=== PATIENT | female | born 1980 | race Caucasian/White ===

== ENCOUNTER 2017-07-30 03:36 | Inpatient (IN) | payer OTHER ==
[2017-07-30] VITALS (161 sets, daily range): BP systolic 72–147; BP diastolic 24–111; PULSE 48–189; RESP 18–20; TEMP 97.5–101.3; O2SAT 98–100
[~2017-07-30] VITALS: Ht 162.6 cm; Wt 80.7 kg
[~2017-07-30 03:36] MED LIST: DHA200CA OR; IBUP-238 PO; PREN0.01 PO; SENN1TAB11 PO
[2017-07-30] MEDS ORDERED: LACTATED RINGER'S 1000 ML INJ 1,000 ML IV PRN (04:17)
--- NOTE | 2017-07-30 04:17 | PD ---
HPI Chief Complaint Rupture of membranes at 1 AM Date Seen: Jul 30, 2017 Time Seen: 04:13 Travel History International Travel<30 Days: No Contact w/Intl Traveler<30Days: No Known Affected Area: No History of Present Illness HPI 36-year-old at 40 weeks gestation comes in complaining of rupture membranes with clear fluid at 1:00 this morning. Patient started having contractions of a year continuing to be mild about the same time, she is group B strep negative and has an uneventful thus far uncomplicated . Weeks Gestation: 40 Para: 1 : 3 History Past Medical History Medical History: Denies Significant Hx Obstetric History Obstetric History Spontaneous vaginal delivery Past Surgical History Surgical History: No Previous Surgery Family History Family History: Negative Social History Alcohol Use: No Tobacco Use: No Substance Abuse: No Allergies-Medications (Allergen,Severity, Reaction): Coded Allergies: Sulfa (Sulfonamide Antibiotics) (Unverified Allergy, Severe, 03/04/17) Home Meds Reported Medications Docusate Sod/Senna (Senna Plus 8.6-50 mg) 1 Tab Tab, 2 TAB PO HS 11/23/10 Ibuprofen (Motrin) 800 Mg Tab, 800 MG PO QID, #30 11/23/10 Docosahexaenoic Acid (Dha Complete) 200 Mg Cap, 200 MG OR 11/20/10 Multivit/Min/Fol Ac/Iron/Pren ( Vit ( Plus)) Tab, 1 TAB PO DAILY, #30 11/20/10 Review of Systems Except as stated in HPI: all other systems reviewed are Neg Physical Exam Narrative GENERAL: Well-nourished, well-developed patient. SKIN: Warm and dry. HEAD: Normocephalic and atraumatic. EYES: No scleral icterus. No injection or drainage. ENT: No nasal drainage noted. Mucous membranes pink. Airway patent. NECK: Supple, trachea midline. No JVD. CARDIOVASCULAR: Regular rate and rhythm without murmurs, gallops, or rubs. RESPIRATORY: Breath sounds equal bilaterally. No accessory muscle use. ABDOMEN/GI: Abdomen soft, non-tender, bowel sounds present, no rebound, no guarding Gravid to 38 [-] weeks size Fundal Height: [-] GENITOURINARY: External Genitalia: intact and normal in appearance BUS glands: [-Normal] Cervix: [-] Posterior Dilatation: [-] 1 Effacement: [-] Long Station: [-] High Presentation: [-] Vertex Membranes: [intact or ruptured] ruptured with clear fluid Uterine Contractions: [-] Every 5-8 minutes FHT's: Category: [-] 1 Baseline: [-] 140 Reactive: [-] Moderate Variability: [-] Moderate Decels: [-] Absent EXTREMITIES: No cyanosis or edema. BACK: Nontender without obvious deformity. No CVA tenderness. NEUROLOGICAL: Awake and alert. Motor and sensory grossly within normal limits. Five out of 5 muscle strength in all muscle groups. Normal speech. Data Data Vital Signs Reviewed: Yes Orders Orders Ob (2e) Additional Admit Info (07/30/17 04:10) Group B Strep: Negative [facility] Medical Record Reviewed: Yes Plan 36-year-old at 40 weeks gestation with premature rupture membranes, group B strep negative. Admit to labor delivery, patient desires epidural at some point during her labor Diagnosis Diagnosis: Primary Impression: 40 weeks gestation of Additional Impressions: Rupture of membranes with clear amniotic fluid Premature rupture of membranes Saundra Lemus MD Jul 30, 2017 04:17
[2017-07-30] MEDS: LACTATED RINGER'S 1000 ML INJ 1,000 ML IV SCH ×3 (04:25→15:49)
[2017-07-30] MEDS ORDERED: MINERAL OIL 10 ML VIAL TOPICAL PRN (04:30)
[2017-07-30] MEDS ORDERED: OXYTOCIN 30 UNITS-500ML PREMIX 500 ML IV SCH ×2 (04:30→18:00)
[2017-07-30] MEDS ORDERED: SODIUM CHLORID 0.9% 500 ML INJ 500 ML IV PRN (04:30)
[2017-07-30] MEDS ORDERED: CITRIC ACID-SODIUM CITRATE LIQ 30 ML UDC PO SCH (04:30)
[2017-07-30] MEDS ORDERED: LIDOCAINE HCL 1% 50 ML VIAL I-DERMAL PRN (04:30)
[2017-07-30] MEDS ORDERED: ONDANSETRON HCL 4 MG/2 ML VIAL IV PUSH PRN (04:30)
[2017-07-30] MEDS ORDERED: LIDOCAINE HCL 1% 50 ML VIAL INFIL PRN (04:30)
[2017-07-30] MEDS ORDERED: SODIUM CHLOR 0.9% 1000 ML INJ 1,000 ML IV PRN (04:37)
[2017-07-30 04:44] LABS: AUTOMATED NEUTROPHIL # 6.1 TH/MM3 (1.8-7.7); BASOPHIL % 0.3 % (0.0-2.0); EOSINOPHIL # 0.1 TH/MM3 (0-0.4); EOSINOPHIL % 0.9 % (0.0-4.0); HEMATOCRIT 32.9 % (35.0-46.0); HEMOGLOBIN 11.6 GM/DL (11.6-15.3); LYMPH % 26.4 % (9.0-44.0); LYMPHOCYTE # 2.5 TH/MM3 (1.0-4.8); MEAN CELL VOLUME 88.5 FL (80.0-100.0); MEAN CORPUSCULAR HEMOGLOBIN 31.1 PG (27.0-34.0); MEAN CORPUSCULAR HGB CONC 35.2 % (32.0-36.0); MEAN PLATELET VOLUME 9.3 FL (7.0-11.0); MONO % 7.9 % (0.0-8.0); MONOCYTE # 0.7 TH/MM3 (0-0.9); NEUT % 64.5 % (16.0-70.0); PLATELET COUNT 197 TH/MM3 (150-450); RED BLOOD COUNT 3.72 MIL/MM3 (4.00-5.30); RED CELL DISTRIBUTION WIDTH 15.4 % (11.6-17.2); WHITE BLOOD COUNT 9.5 TH/MM3 (4.0-11.0)
[2017-07-30 04:48] LABS: BILIRUBIN, URINE NEG (NEG); BLOOD, URINE NEG (NEG); GLUCOSE,URINE NEG (NEG); KETONE, URINE 10 mg/dL (NEG); MUCUS URINE FEW /lpf (OCC); NITRITE,URINE NEG (NEG); PH, URINE 6.5 (5.0-8.5); SQUAMOUS EPITHELIAL CELL URINE <1 /hpf (0-5); URINE COLOR YELLOW (YELLW/STRAW); URINE LEUKOCYTE ESTERASE NEG (NEG)
--- NOTE | 2017-07-30 08:38 | HHI.PR ---
[employer] Note Note to bedside to evaluate pt admit for PROM, augmenting with pitocin //2 arlette q4 min, pitocin at 6 milliunits/min feeling contractions pain 08/30; not yet requesting epidural Cat I tracing currently continue augmentation anticipate Arianna Lord MD Jul 30, 2017 08:38
[2017-07-30] MEDS ORDERED: fentaNYL 2MCG-BUPIV 0.125% INJ 100 ML ONE (09:05)
[2017-07-30] MEDS ORDERED: ePHEDrine/NS 25 MG/5 ML SYRINGE ONE (09:05)
[2017-07-30] MEDS ORDERED: DO NOT ADMINISTER ANTICOAGULANTS PRN (10:30)
[2017-07-30] MEDS ORDERED: NO SYSTEM NARCOTICS PRN (10:30)
[2017-07-30] MEDS ORDERED: fentaNYL 2MCG-BUPIV 0.125% 100 ML EPIDURAL SCH (10:30)
[2017-07-30] MEDS ORDERED: ePHEDrine/NS 25 MG/5 ML SYRINGE IV PUSH PRN (10:30)
[2017-07-30] MEDS ORDERED: MEASLES, MUMPS, RUBELLA VACCINE 0.5 ML VIAL SQ ONE (16:00)
[2017-07-30] MEDS ORDERED: DIPHTH/TETANUS/ACEL PERTUSSIS (BOOSTER) 0.5 ML VIAL/PFS IM ONE (16:00)
[2017-07-30] MEDS ORDERED: LIDOCAINE HCL 1% 20 ML VIAL ONE (17:48)
[2017-07-30] MEDS ORDERED: ACETAMINOPHEN 325 MG TAB PO PRN (18:00)
[2017-07-30] MEDS ORDERED: ZOLPIDEM TARTRATE 5 MG TAB PO PRN (18:00)
[2017-07-30] MEDS ORDERED: BENZOCAINE 20% TOPICAL SPRAY 60 ML CAN TOPICAL PRN (18:00)
[2017-07-30] MEDS ORDERED: ONDANSETRON ODT 4 MG TAB PO PRN (18:00)
[2017-07-30] MEDS ORDERED: ALUMINUM/MAGNESIUM/SIMETH 30 ML CUP PO PRN (18:00)
[2017-07-30] MEDS ORDERED: DOCUSATE SODIUM 50 MG/SENNA 8.6 MG TAB PO PRN (18:00)
[2017-07-30] MEDS ORDERED: SODIUM CHLORIDE 0.9% FLUSH 10 ML FLUSH IV FLUSH PRN (18:00)
[2017-07-30] MEDS ORDERED: oxyCODONE/ACETAMINOPHEN 5 MG/325 MG TAB PO PRN ×2 (18:00)
[2017-07-30] MEDS ORDERED: WITCH HAZEL 50%/GLYCERIN 12.5% 40 PAD JAR TOPICAL PRN (18:00)
--- NOTE | 2017-07-30 18:00 | PD.OB.DELI ---
Weeks gestation: 40 Medical induction of labor?: No Artificial rupture of membrane: No Anesthesia: Epidural Episiotomy: None Vaginal Delivery: Normal Presentation: Occiput anterior Nuchal Cord: x1 (tight, clamped & cut at perineum) Delayed cord clamping (45 sec): No Infant: Single Delivery date: Jul 30, 2017 Delivery time: 17:39 One Minute : 8 Five Minute : 8 Placenta: Spontaneous delivery, Intact, 3 vessel cord Laceration: Vaginal laceration (sidewall abrasion in vein; single figure of 8 suture using 3-0 chromic achieved hemostasis) Repair: Chromic running (single figure of 8) Estimated blood loss: 200 mL Arianna Gamez MD Jul 30, 2017 18:00
[2017-07-30] MEDS ORDERED: SODIUM CHLORIDE 0.9% FLUSH 10 ML FLUSH IV FLUSH SCH (21:00)
[2017-07-30] MEDS ORDERED: MISOPROSTOL 200 MCG TAB ONE (23:42)
[2017-07-30] MEDS: OXYTOCIN 30 UNITS-500ML PREMIX 500 ML IV ONE ×2 (23:48→23:50)
--- NOTE | 2017-07-31 00:14 | HHI.PR ---
Subjective Remarks OB HG Called to see patient due to increased bleeding on behalf of Dr. Gamez. The patient delivered at 1739. She reports she's been having moderate to heavy bleeding since. She arrived the unit approximate 8PM and has saturated 2 full pads in about 3-1/2 hours. She is voiding adequately and recently emptied her bladder. The patient has stable vital signs and her fundus is at U +1. Examination revealed bleeding from the vagina. The patient was consented for manual evacuation of uterine clots. The patient was given 100 g of fentanyl IV. Approximately 250 cc of clots and blood was evacuated from the lower uterine segment. The uterus was U -2 following evacuation. Bleeding appeared to be scant and no additional bleeding was noted from the vagina at this time after evacuation. The patient received Methergine 0.2 mg, Cytotec thousand micrograms SC, and 30 units of oxytocin given over 30 minutes. In addition, we'll continue an additional 500 cc bag with 30 units oxytocin over 5 hours. The patient tolerated the evacuation of clots well. Please call for additional bleeding or other concerns. Objective Vital Signs Date Time Temp Pulse Resp B/P (MAP) Pulse Ox O2 Delivery O2 Flow Rate FiO2 07/30/17 21:52 98.0 94 18 120/70 (87) 07/30/17 19:50 18 07/30/17 19:45 85 137/64 (88) 07/30/17 19:30 81 122/79 (93) 07/30/17 19:15 18 07/30/17 19:15 94 138/78 (98) 07/30/17 19:00 80 144/67 (92) 07/30/17 18:56 99.0 07/30/17 18:50 18 07/30/17 18:46 89 135/67 (89) 07/30/17 18:35 18 07/30/17 18:31 94 143/61 (88) 07/30/17 18:20 19 07/30/17 18:15 102 147/93 (111) 07/30/17 18:07 101.3 07/30/17 18:05 19 07/30/17 18:01 178 103/24 (50) 07/30/17 17:59 106 140/86 (104) 07/30/17 17:50 20 07/30/17 17:35 134 07/30/17 17:31 115 129/111 (117) 07/30/17 17:30 103 07/30/17 17:02 99.3 07/30/17 17:00 109 138/91 (107) 07/30/17 17:00 110 07/30/17 16:30 127 07/30/17 16:30 136 128/72 (90) 07/30/17 16:10 114 07/30/17 16:05 109 07/30/17 16:00 108 116/83 (94) 07/30/17 16:00 109 07/30/17 15:35 112 07/30/17 15:31 107 103/80 (88) 07/30/17 15:30 112 07/30/17 15:01 125 120/95 (103) 07/30/17 15:00 98 07/30/17 14:55 95 07/30/17 14:50 48 07/30/17 14:45 102 07/30/17 14:40 94 07/30/17 14:35 98 07/30/17 14:31 83 108/55 (72) 07/30/17 14:30 119 07/30/17 14:01 104 114/84 (94) 07/30/17 14:00 103 07/30/17 13:35 93 07/30/17 13:30 96 133/73 (93) 07/30/17 13:30 90 07/30/17 13:11 97.5 07/30/17 13:10 90 07/30/17 13:05 86 07/30/17 13:00 96 07/30/17 13:00 97 129/83 (98) 07/30/17 12:40 85 98 07/30/17 12:40 87 07/30/17 12:35 78 07/30/17 12:35 82 100 07/30/17 12:30 81 07/30/17 12:30 81 07/30/17 12:30 81 113/56 (75) 100 07/30/17 12:00 75 07/30/17 12:00 75 106/54 (71) 07/30/17 12:00 77 07/30/17 11:55 71 07/30/17 11:55 71 07/30/17 11:50 82 07/30/17 11:50 80 1/10/18 11:45 73 07/30/17 11:45 73 07/30/17 11:40 73 07/30/17 11:40 75 07/30/17 11:39 75 108/61 (77) 07/30/17 11:36 74 107/56 (73) 07/30/17 11:35 74 07/30/17 11:35 74 07/30/17 11:33 76 108/58 (75) 07/30/17 11:30 70 07/30/17 11:30 78 07/30/17 11:30 76 111/53 (72) 07/30/17 11:27 72 105/56 (72) 07/30/17 11:25 78 07/30/17 11:25 75 07/30/17 11:24 80 109/56 (73) 07/30/17 11:21 76 110/53 (72) 07/30/17 11:20 80 07/30/17 11:20 78 07/30/17 11:18 74 107/51 (69) 07/30/17 11:15 77 107/58 (74) 07/30/17 11:15 73 07/30/17 11:15 74 07/30/17 11:12 85 114/68 (83) 07/30/17 11:10 76 07/30/17 11:10 75 07/30/17 11:09 74 107/50 (69) 07/30/17 11:06 71 07/30/17 11:06 105/47 (66) 07/30/17 11:05 82 07/30/17 11:05 80 07/30/17 11:03 100/53 (69) 07/30/17 11:03 79 07/30/17 11:01 84 07/30/17 11:01 107/65 (79) 07/30/17 11:00 83 07/30/17 11:00 85 07/30/17 10:57 81 114/68 (83) 07/30/17 10:55 72 07/30/17 10:55 71 07/30/17 10:54 74 121/63 (82) 07/30/17 10:51 79 123/53 (76) 07/30/17 10:50 79 07/30/17 10:50 81 07/30/17 10:48 76 118/68 (85) 07/30/17 10:45 76 07/30/17 10:45 82 118/63 (81) 07/30/17 10:45 80 07/30/17 10:42 82 115/70 (85) 07/30/17 10:40 90 07/30/17 10:40 84 07/30/17 10:39 91 112/64 (80) 07/30/17 10:36 70 114/60 (78) 07/30/17 10:35 69 07/30/17 10:35 71 07/30/17 10:33 68 116/63 (80) 07/30/17 10:30 76 107/59 (75) 07/30/17 10:30 67 07/30/17 10:30 68 07/30/17 10:25 64 07/30/17 10:25 62 72/45 (54) 07/30/17 10:25 75 07/30/17 10:20 85 107/54 (71) 07/30/17 10:20 88 07/30/17 10:20 89 07/30/17 10:16 78 115/71 (86) 07/30/17 10:15 87 07/30/17 10:15 88 07/30/17 10:10 88 128/75 (92) 07/30/17 10:10 85 07/30/17 10:10 91 07/30/17 10:06 189 97/59 (72) 07/30/17 10:05 88 07/30/17 10:05 86 07/30/17 10:01 80 138/65 (89) 07/30/17 10:00 82 07/30/17 10:00 82 07/30/17 10:00 98.3 07/30/17 09:55 90 07/30/17 09:55 90 137/78 (97) 07/30/17 09:55 87 07/30/17 09:51 83 138/71 (93) 07/30/17 09:50 79 07/30/17 09:50 80 07/30/17 09:46 75 133/71 (91) 07/30/17 09:45 80 07/30/17 09:45 78 07/30/17 09:40 84 07/30/17 09:40 76 07/30/17 09:40 83 135/72 (93) 07/30/17 09:35 77 07/30/17 09:35 76 07/30/17 09:35 77 122/64 (83) 07/30/17 09:33 80 145/44 (77) 07/30/17 09:31 84 126/78 (94) 07/30/17 09:30 98.3 07/30/17 09:30 88 07/30/17 09:30 83 07/30/17 09:20 69 07/30/17 09:20 69 07/30/17 09:15 72 07/30/17 09:15 72 07/30/17 09:10 71 07/30/17 09:05 71 07/30/17 09:00 68 118/78 (91) 07/30/17 09:00 74 07/30/17 08:30 71 136/80 (98) 07/30/17 08:30 67 07/30/17 08:10 69 07/30/17 08:05 74 07/30/17 08:00 68 123/77 (92) 07/30/17 08:00 66 07/30/17 07:50 68 07/30/17 07:45 71 07/30/17 07:44 97.6 69 130/85 (100) 07/30/17 07:40 72 07/30/17 07:35 69 07/30/17 07:30 67 07/30/17 07:25 74 07/30/17 07:20 66 07/30/17 07:10 77 07/30/17 07:05 71 07/30/17 07:00 78 07/30/17 06:55 78 07/30/17 06:50 75 07/30/17 06:45 79 07/30/17 06:40 75 07/30/17 06:35 75 07/30/17 06:30 76 07/30/17 06:25 76 07/30/17 06:20 75 07/30/17 06:15 77 07/30/17 06:10 77 07/30/17 06:05 81 07/30/17 06:00 74 07/30/17 05:55 77 07/30/17 05:50 78 07/30/17 05:45 80 07/30/17 05:40 75 07/30/17 05:35 87 07/30/17 05:30 77 07/30/17 05:25 75 07/30/17 05:20 79 07/30/17 05:15 84 07/30/17 05:10 80 07/30/17 05:05 98 07/30/17 05:00 77 07/30/17 04:55 75 07/30/17 04:50 74 07/30/17 04:45 75 07/30/17 04:40 79 07/30/17 04:35 88 07/30/17 04:30 82 07/30/17 04:25 77 07/30/17 04:20 82 07/30/17 03:55 86 Result Diagram: 07/30/17 0431 Suzy Montalvo MD Jul 31, 2017 00:13
[2017-07-31 00:28] VITALS: BP 126/69; PULSE 85; RESP 18
[2017-07-31] MEDS ORDERED: METHYLERGONOVINE MALEATE 0.2 MG/ML VIAL IM ONE (01:00)
[2017-07-31] MEDS ORDERED: MISOPROSTOL 200 MCG TAB RECTAL ONE (01:00)
[2017-07-31] MEDS ORDERED: OXYTOCIN 30 UNITS-500ML PREMIX 500 ML IV ONE (01:00)
[2017-07-31 08:00] VITALS: BP 86/66; PULSE 85; RESP 16; TEMP 99.3
[2017-07-31] MEDS: IBUPROFEN 800 MG TAB PO PRN ×2 (08:34→16:11)
--- NOTE | 2017-07-31 08:34 | HHI.OB ---
Subjective Post Day: 1 Remarks doing well, VB decreasing since manual clot evacuation yesterday evening, still > cycles, no dizziness, feel "warm" denies n/v. Objective Vitals/I&O Vital Signs Date Time Temp Pulse Resp B/P (MAP) Pulse Ox O2 Delivery O2 Flow Rate FiO2 07/31/17 00:28 85 18 126/69 (88) 07/30/17 21:52 98.0 94 18 120/70 (87) 07/30/17 19:50 18 07/30/17 19:45 85 137/64 (88) 07/30/17 19:30 81 122/79 (93) 07/30/17 19:15 18 07/30/17 19:15 94 138/78 (98) 07/30/17 19:00 80 144/67 (92) 07/30/17 18:56 99.0 07/30/17 18:50 18 07/30/17 18:46 89 135/67 (89) 07/30/17 18:35 18 07/30/17 18:31 94 143/61 (88) 07/30/17 18:20 19 07/30/17 18:15 102 147/93 (111) 07/30/17 18:07 101.3 07/30/17 18:05 19 07/30/17 18:01 178 103/24 (50) 07/30/17 17:59 106 140/86 (104) 07/30/17 17:50 20 07/30/17 17:35 134 07/30/17 17:31 115 129/111 (117) 07/30/17 17:30 103 07/30/17 17:02 99.3 07/30/17 17:00 109 138/91 (107) 07/30/17 17:00 110 07/30/17 16:30 127 07/30/17 16:30 136 128/72 (90) 07/30/17 16:10 114 07/30/17 16:05 109 07/30/17 16:00 108 116/83 (94) 07/30/17 16:00 109 07/30/17 15:35 112 07/30/17 15:31 107 103/80 (88) 07/30/17 15:30 112 07/30/17 15:01 125 120/95 (103) 07/30/17 15:00 98 07/30/17 14:55 95 07/30/17 14:50 48 07/30/17 14:45 102 07/30/17 14:40 94 07/30/17 14:35 98 07/30/17 14:31 83 108/55 (72) 07/30/17 14:30 119 07/30/17 14:01 104 114/84 (94) 07/30/17 14:00 103 07/30/17 13:35 93 07/30/17 13:30 96 133/73 (93) 07/30/17 13:30 90 07/30/17 13:11 97.5 07/30/17 13:10 90 07/30/17 13:05 86 07/30/17 13:00 96 07/30/17 13:00 97 129/83 (98) 07/30/17 12:40 85 98 07/30/17 12:40 87 07/30/17 12:35 78 07/30/17 12:35 82 100 07/30/17 12:30 81 07/30/17 12:30 81 07/30/17 12:30 81 113/56 (75) 100 07/30/17 12:00 75 07/30/17 12:00 75 106/54 (71) 07/30/17 12:00 77 07/30/17 11:55 71 07/30/17 11:55 71 07/30/17 11:50 82 07/30/17 11:50 80 07/30/17 11:45 73 07/30/17 11:45 73 07/30/17 11:40 73 07/30/17 11:40 75 07/30/17 11:39 75 108/61 (77) 07/30/17 11:36 74 107/56 (73) 07/30/17 11:35 74 07/30/17 11:35 74 07/30/17 11:33 76 108/58 (75) 07/30/17 11:30 70 07/30/17 11:30 78 07/30/17 11:30 76 111/53 (72) 07/30/17 11:27 72 105/56 (72) 07/30/17 11:25 78 07/30/17 11:25 75 07/30/17 11:24 80 109/56 (73) 07/30/17 11:21 76 110/53 (72) 07/30/17 11:20 80 07/30/17 11:20 78 07/30/17 11:18 74 107/51 (69) 07/30/17 11:15 77 107/58 (74) 07/30/17 11:15 73 07/30/17 11:15 74 07/30/17 11:12 85 114/68 (83) 07/30/17 11:10 76 07/30/17 11:10 75 07/30/17 11:09 74 107/50 (69) 07/30/17 11:06 71 07/30/17 11:06 105/47 (66) 07/30/17 11:05 82 07/30/17 11:05 80 07/30/17 11:03 100/53 (69) 07/30/17 11:03 79 07/30/17 11:01 84 07/30/17 11:01 107/65 (79) 07/30/17 11:00 83 07/30/17 11:00 85 07/30/17 10:57 81 114/68 (83) 07/30/17 10:55 72 07/30/17 10:55 71 07/30/17 10:54 74 121/63 (82) 07/30/17 10:51 79 123/53 (76) 07/30/17 10:50 79 07/30/17 10:50 81 07/30/17 10:48 76 118/68 (85) 07/30/17 10:45 76 07/30/17 10:45 82 118/63 (81) 07/30/17 10:45 80 07/30/17 10:42 82 115/70 (85) 07/30/17 10:40 90 07/30/17 10:40 84 07/30/17 10:39 91 112/64 (80) 07/30/17 10:36 70 114/60 (78) 07/30/17 10:35 69 07/30/17 10:35 71 07/30/17 10:33 68 116/63 (80) 07/30/17 10:30 76 107/59 (75) 07/30/17 10:30 67 07/30/17 10:30 68 07/30/17 10:25 64 07/30/17 10:25 62 72/45 (54) 07/30/17 10:25 75 07/30/17 10:20 85 107/54 (71) 07/30/17 10:20 88 07/30/17 10:20 89 07/30/17 10:16 78 115/71 (86) 07/30/17 10:15 87 07/30/17 10:15 88 07/30/17 10:10 88 128/75 (92) 07/30/17 10:10 85 07/30/17 10:10 91 07/30/17 10:06 189 97/59 (72) 07/30/17 10:05 88 07/30/17 10:05 86 07/30/17 10:01 80 138/65 (89) 07/30/17 10:00 82 07/30/17 10:00 82 07/30/17 10:00 98.3 07/30/17 09:55 90 07/30/17 09:55 90 137/78 (97) 07/30/17 09:55 87 07/30/17 09:51 83 138/71 (93) 07/30/17 09:50 79 07/30/17 09:50 80 07/30/17 09:46 75 133/71 (91) 07/30/17 09:45 80 07/30/17 09:45 78 07/30/17 09:40 84 07/30/17 09:40 76 07/30/17 09:40 83 135/72 (93) 07/30/17 09:35 77 07/30/17 09:35 76 07/30/17 09:35 77 122/64 (83) 07/30/17 09:33 80 145/44 (77) 07/30/17 09:31 84 126/78 (94) 07/30/17 09:30 98.3 07/30/17 09:30 88 07/30/17 09:30 83 07/30/17 09:20 69 07/30/17 09:20 69 07/30/17 09:15 72 07/30/17 09:15 72 07/30/17 09:10 71 07/30/17 09:05 71 07/30/17 09:00 68 118/78 (91) 07/30/17 09:00 74 Objective Remarks GENERAL: Well-nourished, well-developed patient. CARDIOVASCULAR: Regular rate and rhythm without murmurs, gallops, or rubs. RESPIRATORY: Breath sounds equal bilaterally. No accessory muscle use. ABDOMEN/GI: Abdomen soft, non-tender. Fundus: Firm, non-tender at umbilicus. GENITOURINARY: Light to moderate bleeding. EXTREMITIES: No cyanosis or edema, non-tender, without signs of DVT. Medications and IVs Current Medications Medications (Trade) Dose Ordered Sig/Rudy Route Start Time Stop Time Status Last Admin (NS Flush) 2 ml BID IV FLUSH 07/30/17 21:00 (NS Flush) 2 ml UNSCH PRN IV FLUSH 07/30/17 18:00 (Tylenol) 650 mg Q4H PRN PO 07/30/17 18:00 (Motrin) 800 mg Q8H PRN PO 07/30/17 18:00 (Percocet 5-325 Mg) 1 tab Q4H PRN PO 07/30/17 18:00 (Percocet 5-325 Mg) 2 tab Q4H PRN PO 07/30/17 18:00 (Americaine 20% Top Spr) 1 spray Q4H PRN TOPICAL 07/30/17 18:00 (Tucks Pads) 1 applic QID PRN TOPICAL 07/30/17 18:00 (Capri-Colace) 2 tab Q12H PRN PO 07/30/17 18:00 (Ambien) 5 mg HS PRN PO 07/30/17 18:00 (Mag-Al Plus Susp Liq) 15 ml Q8H PRN PO 07/30/17 18:00 (Zofran Odt) 4 mg Q6H PRN PO 07/30/17 18:00 Assessment/Plan Attending Attestation 36 yo s/p at 40w 1. PPD #1: doing well, anticipate d/c home tomorrow. - New born, desires circ, baby is having respiratory issues and possibly going to NICU, will defer on circ at this time. Pt states she has paid. 2. PPH: ~ 250cc of clot evacuated from uterus around MN last night, given IM Methergine x 1, OH mis and extra pit, VB decreased per nursing and pt but still heavier than menses, will begin methergine series x 24hrs, Pts VSS and asymptomatic will continue observation. Recheck CBC tomorrow AM. Ramiro Richmond MD Jul 31, 2017 08:33
--- NOTE | 2017-07-31 08:35 | HHI.DCPOC ---
Discharge Care Plan Your Health Problems Are: Vaginal delivery Report Symptoms to Your Doctor -Temperature above 100.5 degrees -Redness, of incision or excessive or foul smelling drainage -Unusual pain or calf pain -Increased vaginal bleeding -Painful or difficulty urinating -Feelings of extreme sadness or anxiety after 2 weeks Goals to Promote Your Health * To prevent worsening of your condition and complications * To maintain your health at the optimal level Directions to Meet Your Goals Take your medications as prescribed Follow your dietary instruction Follow activity as directed Ensure plenty of rest for recovery Drink fluids for hydration Keep your appointments as scheduled Take your immunizations and boosters as scheduled If your symptoms worsen call your PCP, if no PCP go to Urgent Care Center or Emergency Room Smoking is Dangerous to Your Health. Avoid second hand smoke Call the 24-hour crisis hotline for domestic abuse at Ramiro Richmond MD Jul 31, 2017 08:35
[2017-07-31] MEDS: METHYLERGONOVINE MALEATE 0.2 MG TAB PO SCH ×4 (09:31→21:58)
[2017-07-31 20:00] VITALS: BP 118/69; PULSE 66; RESP 18; TEMP 97.6
[2017-08-01] MEDS: METHYLERGONOVINE MALEATE 0.2 MG TAB PO SCH ×2 (01:38→05:59)
[2017-08-01] MEDS: IBUPROFEN 800 MG TAB PO PRN (01:40)
[2017-08-01 05:54] LABS: AUTOMATED NEUTROPHIL # 10.2 TH/MM3 (1.8-7.7); BASOPHIL # 0.1 TH/MM3 (0-0.2); BASOPHIL % 0.4 % (0.0-2.0); EOSINOPHIL # 0.1 TH/MM3 (0-0.4); EOSINOPHIL % 0.6 % (0.0-4.0); HEMATOCRIT 29.7 % (35.0-46.0); HEMOGLOBIN 10.2 GM/DL (11.6-15.3); LYMPH % 18.9 % (9.0-44.0); LYMPHOCYTE # 2.7 TH/MM3 (1.0-4.8); MEAN CELL VOLUME 89.1 FL (80.0-100.0); MEAN CORPUSCULAR HEMOGLOBIN 30.7 PG (27.0-34.0); MEAN CORPUSCULAR HGB CONC 34.5 % (32.0-36.0); MEAN PLATELET VOLUME 9.5 FL (7.0-11.0); MONO % 7.8 % (0.0-8.0); MONOCYTE # 1.1 TH/MM3 (0-0.9); NEUT % 72.3 % (16.0-70.0); PLATELET COUNT 142 TH/MM3 (150-450); RED BLOOD COUNT 3.33 MIL/MM3 (4.00-5.30); RED CELL DISTRIBUTION WIDTH 16.2 % (11.6-17.2); WHITE BLOOD COUNT 14.1 TH/MM3 (4.0-11.0)
[2017-08-01 08:00] VITALS: BP 117/70; PULSE 54; RESP 18; TEMP 97.4
== END 2017-08-01 14:59 | disposition home or self-care (01) | DRG 774 ==
LOC: HOBED 03:36 → H2EB 04:12 → H1EA 19:52
PROVIDERS: ADMIT Obstetrics & Gynecology; ATTEND Obstetrics & Gynecology
PROC: 10E0XZZ Delivery of Products of Conception, External Approach (ICD-10-PCS; principal; 2017-07-30)
PROC: 0UQGXZZ Repair Vagina, External Approach (ICD-10-PCS; 2017-07-30)
PROC: 0UC97ZZ Extirpation of Matter from Uterus, Via Natural or Artificial Opening (ICD-10-PCS; 2017-07-31)
DX: O42.92 Full-term premature rupture of membranes, unspecified as to length of time between rupture and onset of labor (principal); O72.1 Other immediate postpartum hemorrhage; O71.4 Obstetric high vaginal laceration alone; O69.1XX0 Labor and delivery complicated by cord around neck, with compression, not applicable or unspecified; Z37.0 Single live birth; Z3A.40 40 weeks gestation of pregnancy; Z88.2 Allergy status to sulfonamides
CPT/HCPCS: 80307; 81001; 84112; 85025; 86900; 86901; J2210; J2590; J3010; J7120